=== PATIENT | male | born 2000 | race Caucasian/White ===

== ENCOUNTER → 2020-05-06 | Day surgery (SDC) | payer OTHER ==
[~2020-05-06] MED LIST: DEXAMETHASONE SOD PHOS INJ 4 MG/ML VIAL ONE; FENTANYL CITRATE/PF 100MCG/2 ML INJ ONE; GLYCOPYRROLATE INJ 0.2 MG/ML VIAL ONE; LIDOCAINE 1% W/EPINEPHRINE 20 ML VIAL ONE; LIDOCAINE HCL 2% LOCAL INJ 5 ML SDV VIAL INJ ONE; MIDAZOLAM HCL 2 MG/2 ML VIAL ONE; NEOSTIGMINE 1 MG/ML 10ML VIAL ONE; ONDANSETRON HCL INJ 2MG/ML 2ML 2 MG/ML VIAL ONE; PROPOFOL IV EMULSION 10 MG/ML 20 ML VIAL ONE; ROCURONIUM BROMIDE 10 MG/ML 5ML VIAL IV ONE; SEVOFLURANE INHAL SOLN 250 ML PEN BTL ONE
[2020-05-06 11:05] VITALS: BP 130/71
== END | disposition home or self-care (01) ==
LOC: OR 06:43
PROVIDERS: ATTEND Otolaryngology Otolaryngology/Facial Plastic Surgery
DX: C81.11 Nodular sclerosis Hodgkin lymphoma, lymph nodes of head, face, and neck (principal); R16.1 Splenomegaly, not elsewhere classified; R49.0 Dysphonia; F17.220 Nicotine dependence, chewing tobacco, uncomplicated
CPT/HCPCS: 10021; 21550; 88305; J1100; J2001; J2250; J2405; J2704; J2710; J3010